=== PATIENT | male | born 1980 | race Caucasian/White ===

== ENCOUNTER 2019-01-21 08:44 | Emergency (ER) | payer MEDICAID ==
--- NOTE | 2019-01-21 09:05 | ERPHSYRPT ---
- History of Present Illness Time Seen by Provider: 01/21/19 08:55 Source: patient Exam Limitations: no limitations Patient Subjective Stated Complaint: Pt states "I have had a toothache for about a week and a dentist cannot get me in for another week." Triage Nursing Assessment: Pt presented alert and oriented X 3, skni pwd Pt ambualtes with an upright steady gait, able to speak in clear full sentences PT has dental carries throughout teeth, pain to bilat lower canine Physician History: 38 y/o white male presents with dental pain for a week. pt states he has a dental appt in one week. pt has enough amoxicillin for a week. he has taken 3 pills. he is also alternating tylenol and ibuprofen for pain. pt has chronic poor dentition. Timing/Duration: gradual onset, persistent, weeks (1) Severity: moderate ENT Location: dental Prearrival Treatment: over the counter meds, prescription meds Associated Symptoms: tooth pain Allergies/Adverse Reactions: ketorolac [From Toradol] Allergy (Severe, Verified 01/21/19 08:53) Swelling Home Medications: Amoxicillin 500 mg Cap [Amoxil 500 mg] 01/21/19 [History] Clonazepam 01/21/19 [History] Hx Tetanus, Diphtheria Vaccination/Date Given: Yes Hx Influenza Vaccination/Date Given: No Hx Pneumococcal Vaccination/Date Given: No Immunizations Up to Date: Yes - Review of Systems Constitutional: No Symptoms Eyes: No Symptoms Ears, Nose, & Throat: Other (dental pain) Respiratory: No Symptoms Cardiac: No Symptoms Abdominal/Gastrointestinal: No Symptoms Genitourinary Symptoms: No Symptoms Musculoskeletal: No Symptoms Skin: No Symptoms Neurological: No Symptoms Psychological: No Symptoms Endocrine: No Symptoms Hematologic/Lymphatic: No Symptoms Immunological/Allergic: No Symptoms All Other Systems: Reviewed and Negative - Past Medical History Pertinent Past Medical History: Yes Neurological History: No Pertinent History ENT History: No Pertinent History Cardiac History: No Pertinent History Respiratory History: No Pertinent History Endocrine Medical History: No Pertinent History Musculoskeletal History: No Pertinent History GI Medical History: No Pertinent History History: No Pertinent History Psycho-Social History: No Pertinent History Male Reproductive Disorders: No Pertinent History Other Medical History: hypertention - Past Surgical History Past Surgical History: Yes Neuro Surgical History: No Pertinent History Cardiac: No Pertinent History Respiratory: No Pertinent History Gastrointestinal: No Pertinent History Genitourinary: No Pertinent History Musculoskeletal: No Pertinent History Male Surgical History: No Pertinent History Other Surgical History: lithotripsy - Social History Smoking Status: Current every day smoker How long have you smoked: years Exposure to second hand smoke: Yes Drug Use: none Patient Lives Alone: No Significant Family History: no pertinent family hx - Nursing Vital Signs Nursing Vital Signs: Initial Vital Signs Temperature 98.3 F 01/21/19 08:48 Pulse Rate 105 H 01/21/19 08:48 Respiratory Rate 16 01/21/19 08:48 Blood Pressure 148/97 01/21/19 08:48 O2 Sat by Pulse Oximetry 100 01/21/19 08:48 Pain Scale Pain Intensity 7 - Physical Exam General Appearance: no apparent distress, alert, anxiety Eye Exam: bilateral eye: normal inspection, PERRL, EOMI Ear Exam: bilateral ear: auricle normal Nasal Exam: normal inspection Throat Exam: dental tenderness (bilat lower incisor pain and fx) Neck Exam: normal inspection, non-tender, supple, full range of motion Cardiovascular/Respiratory Exam: chest non-tender Abdominal Exam: non-tender Neurologic Exam: alert, oriented x 3, cooperative Skin Exam: normal color, warm, dry SpO2 Interpretation: normal SpO2: 100 O2 Delivery: Room Air - Course Nursing assessment & vital signs reviewed: Yes - Progress Progress: unchanged Counseled pt/family regarding: diagnosis, need for follow-up - Departure Departure Disposition: Home Clinical Impression: Pain, dental Condition: Stable Critical Care Time: No Additional Instructions: continue antibiotics, keep your dental appointment next week, continue alternating tylenol and ibuprofen as you have been doing. rinse mouth with warm or cold water, whichever gives relief, as needed. use over the counter topical pain agents.
[2019-01-21] MEDS ORDERED: BENADRYL 12.5 MG/5 ML PO ONE (09:09)
[2019-01-21] MEDS ORDERED: OXYCODONE-ACETAMINOPHEN 10-325 PO STA (09:09)
[2019-01-21] MEDS ORDERED: XYLOCAINE HCl Viscous MM PRN (09:11)
[2019-01-21] MEDS ORDERED: XYLOCAINE HCl Viscous ONE (09:13)
[2019-01-21] MEDS ORDERED: BENADRYL 12.5 MG/5 ML ONE (09:13)
[2019-01-21] MEDS ORDERED: OXYCODONE-ACETAMINOPHEN 10-325 ONE (09:17)
[2019-01-21 09:40] VITALS: BP 136/90; PULSE 100; O2SAT 99
== END 2019-01-21 09:27 | disposition home or self-care (01) ==
LOC: ED 08:44
DX: K08.89 Other specified disorders of teeth and supporting structures (principal)
CPT/HCPCS: 99283; A9270-GY